=== PATIENT | female | born 1995 | race Hispanic/Latino ===

== ENCOUNTER 2017-12-21 05:52 | Emergency (ER) | payer MEDICAID, OTHER ==
[2017-12-21] MEDS ORDERED: CEFTRIAXONE SODIUM 1 GM ONE (06:58)
[2017-12-21] MEDS ORDERED: AZITHROMYCIN 250 MG TABLET PO ONE (06:59)
[2017-12-21] MEDS ORDERED: LIDOCAINE HCL 2% 20ML ONE (06:59)
== END 2017-12-21 07:18 | disposition home or self-care (01) ==
LOC: EDH 05:52
DX: O99.513 Diseases of the respiratory system complicating pregnancy, third trimester (principal); J18.9 Pneumonia, unspecified organism; Z3A.33 33 weeks gestation of pregnancy
CPT/HCPCS: 96372; 99283; J0696; J3490

== ENCOUNTER 2018-01-04 16:06 | Observation (INO) | payer MEDICAID ==
[~2018-01-04] VITALS: Ht 170.2 cm; Wt 84.4 kg
[2018-01-04 16:42] LABS: APPEARANCE,URINE Clear (CLEAR); BILIRUBIN,URINE Negative (NEGATIVE); COLOR,URINE Yellow (YELLOW); GLUCOSE, URINE (UA) 250 mg/dL (NEGATIVE); KETONES,URINE Negative (NEGATIVE); LEUKOCYTE ESTERASE ,URINE Moderate (NEGATIVE); NITRATE,URINE Negative (NEGATIVE); OCCULT BLOOD,URINE Negative (NEGATIVE); PH,URINE 6.5 (5.0-8.0); PROTEIN,URINE Negative (NEGATIVE)
[2018-01-04 16:50] LABS: BACTERIA,URINE None Seen /HPF (None Seen); MUCUS,URINE Few LPF (None Seen); RBC,URINE None Seen /HPF (0-1); RENAL EPITHELIAL CELLS,URINE Rare /HPF (None Seen); TRANSITIONAL EPI CELLS,URINE Rare /HPF (None Seen)
[2018-01-04] MEDS ORDERED: CEFTRIAXONE SODIUM 1 GM IVP SCH (17:30)
[2018-01-04] MEDS ORDERED: CEFTRIAXONE 1GM/D5W 50ML 50 ML IV SCH (17:30)
== END 2018-01-04 18:00 | disposition home or self-care (01) ==
LOC: LDH 16:06
PROVIDERS: ADMIT Obstetrics & Gynecology; ATTEND Obstetrics & Gynecology
DX: O26.893 Other specified pregnancy related conditions, third trimester (principal); R10.9 Unspecified abdominal pain; Z3A.35 35 weeks gestation of pregnancy
CPT/HCPCS: 81001; A4218; G0378 ×3; J0696 ×2; J7120; 96360; 96361

== ENCOUNTER 2018-01-29 08:59 | Inpatient (IN) | payer MEDICAID ==
[~2018-01-29] VITALS: Ht 170.2 cm; Wt 84.8 kg
[2018-01-29 20:43] LABS: APPEARANCE,URINE Cloudy (CLEAR); BILIRUBIN,URINE Negative (NEGATIVE); COLOR,URINE Yellow (YELLOW); GLUCOSE, URINE (UA) Negative (NEGATIVE); KETONES,URINE 15 mg/dL (NEGATIVE); LEUKOCYTE ESTERASE ,URINE Moderate (NEGATIVE); NITRATE,URINE Negative (NEGATIVE); OCCULT BLOOD,URINE Negative (NEGATIVE); PH,URINE 6.5 (5.0-8.0); PROTEIN,URINE Negative (NEGATIVE); UROBILINOGEN,URINE 0.2 mg/dL (0.2-1.0)
[2018-01-29 20:54] LABS: BACTERIA,URINE Few /HPF (None Seen); RBC,URINE None Seen /HPF (0-1); SQUAMOUS EPITHELIAL CELL,UR 50-100 /HPF (0-2)
[2018-01-29] MEDS: LACTATED RINGERS 1000ML 1,000 ML IV PRN (21:25)
[2018-01-29 21:42] LABS: HEMATOCRIT 29.3 % (36-48); MEAN CORPUSCULAR HGB CONC 33.2 g/dL (32.0-36.0); MEAN CORPUSCULAR VOLUME 84.4 fL (79-99); PLATELET COUNT (AUTO) 194 K/uL (130-400); RED BLOOD CELL COUNT(AUTO) 3.47 MIL/uL (4.00-5.50); RED CELL DISTRIBUTION WIDTH 15.2 % (11.0-15.5); WHITE BLOOD COUNT (AUTO) 9.4 K/uL (4.8-10.8)
[2018-01-30] MEDS: LACTATED RINGERS 1000ML 1,000 ML IV PRN (03:56)
[2018-01-30] MEDS ORDERED: OXYTOCIN 10 USP UNITS/ML ONE ×2 (04:49→13:28)
[2018-01-30] MEDS ORDERED: LACTATED RINGERS 1000ML 1,000 ML IV ONE ×2 (04:49→13:28)
[2018-01-30] MEDS ORDERED: OXYTOCIN 10 USP UNITS/ML 20 UNIT in LACTATED RINGERS 1000ML 1,000 ML IV SCH (05:00)
[2018-01-30] MEDS ORDERED: PROMETHAZINE HCL 25 MG/ML 1ML AMPULE IM ONE (11:24)
[2018-01-30] MEDS ORDERED: MEPERIDINE-PF 50 MG/ML SYG ONE (11:25)
[2018-01-30] MEDS ORDERED: WITCH HAZEL 1 PAD TP PRN (12:30)
[2018-01-30] MEDS ORDERED: MEASLES/MUMPS/RUBELLA VACCINE, LIVE 0.5 ML/VIAL SQ PRN (12:30)
[2018-01-30] MEDS ORDERED: ACETAMINOPHEN 325 MG TAB PO PRN (12:30)
[2018-01-30] MEDS ORDERED: BENZOCAINE/LANOLIN/ALOE VERA 60 ML AEROSOL TP PRN (12:30)
[2018-01-30] MEDS ORDERED: DIPH,PERTUSS(ACELL),TET VAC/PF 0.5 ML VIAL IM PRN (12:30)
[2018-01-30] MEDS ORDERED: LANOLIN 30GM OINTMENT TP PRN (12:30)
[2018-01-30] MEDS ORDERED: OXYTOCIN-LR 20 UNITS/1000 ML 1,000 ML IV SCH (12:30)
[2018-01-30 14:25] VITALS: BP 120/70
[2018-01-30] MEDS ORDERED: PREN-154 PO (14:40)
[2018-01-30] MEDS ORDERED: FERR-82 PO (14:40)
[2018-01-30] MEDS: IBUPROFEN 600 MG TABLET PO PRN ×2 (14:49→20:46)
[2018-01-30 15:45] VITALS: BP 122/62
[2018-01-30 19:58] VITALS: BP 126/71
[2018-01-30] MEDS: DOCUSATE SODIUM 100 MG CAP PO SCH (20:45)
[2018-01-30 23:36] VITALS: BP 108/60
[2018-01-31 04:12] VITALS: BP 110/55
[2018-01-31 05:11] LABS: HEMATOCRIT 26.2 % (36-48); MEAN CORPUSCULAR HEMOGLOBIN 29.3 pg (27.0-33.0); MEAN CORPUSCULAR HGB CONC 34.5 g/dL (32.0-36.0); PLATELET COUNT (AUTO) 187 K/uL (130-400); RED BLOOD CELL COUNT(AUTO) 3.08 MIL/uL (4.00-5.50); RED CELL DISTRIBUTION WIDTH 15.7 % (11.0-15.5); WHITE BLOOD COUNT (AUTO) 12.1 K/uL (4.8-10.8)
[2018-01-31 07:30] VITALS: BP 106/56
[2018-01-31 08:21] LABS: HEPATITIS Bs ANTIGEN SCREEN P Negative (Negative)
[2018-01-31] MEDS: IBUPROFEN 600 MG TABLET PO PRN (08:32)
[2018-01-31] MEDS: DOCUSATE SODIUM 100 MG CAP PO SCH (08:32)
[2018-01-31 11:35] VITALS: BP 117/71
== END 2018-01-31 13:50 | disposition home or self-care (01) | DRG 560 ==
LOC: LDH 18:36 → WSH 01-30 14:25
PROVIDERS: ADMIT Obstetrics & Gynecology; ATTEND Obstetrics & Gynecology
PROC: 10E0XZZ Delivery of Products of Conception, External Approach (ICD-10-PCS; principal; 2018-01-30)
PROC: 0W8NXZZ Division of Female Perineum, External Approach (ICD-10-PCS; 2018-01-30)
PROC: 0UQGXZZ Repair Vagina, External Approach (ICD-10-PCS; 2018-01-30)
PROC: 3E0234Z Introduction of Serum, Toxoid and Vaccine into Muscle, Percutaneous Approach (ICD-10-PCS; 2018-01-30)
PROC: 3E0134Z Introduction of Serum, Toxoid and Vaccine into Subcutaneous Tissue, Percutaneous Approach (ICD-10-PCS; 2018-01-30)
DX: O80 Encounter for full-term uncomplicated delivery (principal); Z23 Encounter for immunization; Z37.0 Single live birth; Z3A.38 38 weeks gestation of pregnancy
CPT/HCPCS: 36415; 81001; 85027; 86592; 86850; 86900; 86901; 87340; 90715; A4351; J2175; J2550; J2590; J7120

== ENCOUNTER 2020-05-28 07:56 | Inpatient (IN) | payer OTHER, MEDICAID ==
[~2020-05-28 07:56] MED LIST: FERR-82 PO; PREN-154 PO
[2020-05-28] MEDS ORDERED: LACTATED RINGERS 1000ML 1,000 ML IV PRN (08:17)
[2020-05-28 10:43] LABS: HEMATOCRIT 26.5 % (36-48); MEAN CORPUSCULAR HEMOGLOBIN 25.4 pg (27.0-33.0); MEAN CORPUSCULAR HGB CONC 30.9 g/dL (32.0-36.0); PLATELET COUNT (AUTO) 192 K/uL (130-400); RED BLOOD CELL COUNT(AUTO) 3.23 MIL/uL (4.00-5.50); RED CELL DISTRIBUTION WIDTH 14.7 % (11.0-15.5); WHITE BLOOD COUNT (AUTO) 8.3 K/uL (4.8-10.8)
[2020-05-28] MEDS ORDERED: LACTATED RINGERS 500 ML 500 ML IV PRN (10:45)
[2020-05-28] MEDS ORDERED: BUTORPHANOL TARTRATE 2 MG/ML IVP PRN (10:45)
[2020-05-28] MEDS ORDERED: NALOXONE HCL 0.4 MG/1 ML ML IV PRN (10:45)
[2020-05-28] MEDS ORDERED: OXYTOCIN 10 USP UNITS/ML 20 UNIT in LACTATED RINGERS 1000ML 1,000 ML IV SCH (10:45)
[2020-05-28] MEDS ORDERED: EPHEDRINE SULFATE 50 MG/ML AMPULE IVP PRN (10:45)
[2020-05-28] MEDS ORDERED: OXYTOCIN-LR 20 UNITS/1000 ML 1,000 ML IV ONE (10:46)
[2020-05-28] MEDS ORDERED: LIDOCAINE HCL 1% 20 ML VIAL ONE (14:35)
[2020-05-28] MEDS ORDERED: MEASLES/MUMPS/RUBELLA VACCINE, LIVE 0.5 ML/VIAL SQ PRN (15:00)
[2020-05-28] MEDS ORDERED: LANOLIN 30GM OINTMENT TP PRN (15:00)
[2020-05-28] MEDS ORDERED: ACETAMINOPHEN 325 MG TAB PO PRN (15:00)
[2020-05-28] MEDS ORDERED: OXYTOCIN-LR 20 UNITS/1000 ML 1,000 ML IV SCH (15:00)
[2020-05-28] MEDS ORDERED: ACETAMINOPHEN-CODEINE 300/30MG TAB PO PRN (15:00)
[2020-05-28] MEDS ORDERED: WITCH HAZEL 1 PAD TP PRN (15:00)
[2020-05-28] MEDS ORDERED: DIPH,PERTUSS(ACELL),TET VAC/PF 0.5 ML VIAL IM PRN (15:00)
[2020-05-28] MEDS ORDERED: BENZOCAINE/LANOLIN/ALOE VERA 60 ML AEROSOL TP PRN (15:00)
[2020-05-28 16:20] VITALS: BP 122/67
--- NOTE | 2020-05-28 16:20 | NUR ---
REPORT RECEIVED FROM CLARISSA ALLISON RN L/D AND PATIENT CARE WAS TRANSFERED AT THIS TIME. PATIENT IS STABLE AND STATES HAVING VOIDED PRIOR TO TRANSFER. PATIENT ASSESSED AND VAGINAL BLEEDING IS SMALL AND UTERUS IS FIRM AT -1 FROM UMBILICUS. PIV IS PATIENT TO LEFT FOREARM. PATIENT ORIENTED TO UNIT AND CALL LIGHT LEFT AT BEDSIDE WITHIN REACH TO CALL FOR ASSISTANCE NEEDED. SITZ BATH WAS ISSUED AND PATIENT VERBALIZED KNOWING HOW TO USE SITZ BATH; LANOLIN WAS ISSUED AND TUCKS AND SPRAY AND INSTRUCTED ON USE.
[2020-05-28] MEDS: IBUPROFEN 600 MG TABLET PO PRN (16:37)
[2020-05-28] MEDS ORDERED: PNV1TABL17 PO (17:34)
--- NOTE | 2020-05-28 17:35 | NUR ---
PATIENT REMAINS STABLE AND BABY IS OUT TO ROOM AND BONDING WELL WITH BABY.
--- NOTE | 2020-05-28 19:17 | NUR ---
BEDSIDE REPORT GIVEN TO HANH SALTER RN AND PATIENT CARE TRANSFERED AT THIS TIME.
[2020-05-28 19:40] VITALS: BP 120/57
[2020-05-28] MEDS: DOCUSATE SODIUM 100 MG CAP PO SCH (20:32)
[2020-05-29 00:07] VITALS: BP 122/65
[2020-05-29] MEDS: IBUPROFEN 600 MG TABLET PO PRN ×2 (01:14→09:12)
[2020-05-29 02:56] VITALS: BP 110/74
[2020-05-29 06:33] LABS: HEMATOCRIT 24.1 % (36-48); MEAN CORPUSCULAR HEMOGLOBIN 25.6 pg (27.0-33.0); MEAN CORPUSCULAR HGB CONC 31.1 g/dL (32.0-36.0); MEAN CORPUSCULAR VOLUME 82.3 fL (79-99); RED BLOOD CELL COUNT(AUTO) 2.93 MIL/uL (4.00-5.50); RED CELL DISTRIBUTION WIDTH 14.6 % (11.0-15.5); WHITE BLOOD COUNT (AUTO) 11.5 K/uL (4.8-10.8)
[2020-05-29 07:18] VITALS: BP 120/75
[2020-05-29] MEDS: DOCUSATE SODIUM 100 MG CAP PO SCH (09:11)
--- NOTE | 2020-05-29 10:30 | NUR ---
DR. PERKINS CALLED AND UPDATE GIVEN ON PATIENT STATUS AND INDICATED WOULD DISCHARGE PATIENT TO HOME WITH IRON AND WAS ADDED TO HER SCRIPT.
[2020-05-29 10:58] VITALS: BP 119/63
--- NOTE | 2020-05-29 11:25 | NUR ---
cm note met with patient and states resides at home with spouse, dieudonne, and 2 other manien ages 2 and 3 yo. and mother in law. pt states she does have a hx of anxiety, in the past, occurred in 2012. and took meds for anxiety, but has had no issues with anxiety since then, pt. states she has good family support that she is surrounded with for support if she needs it, but states has no feelings of anxiety at this time, and states will call her MD if any issues arise with anxiety.pt states no dc needs. updated primary nurse Cony. and nursery nurse Tanya. Addendum: 05/29/20 at 1134 by SONNY BURNS CM Amended: Links added.
--- NOTE | 2020-05-29 13:45 | NUR ---
DISCHARGE INSTRUCTIONS GIVEN AND SCRIPT FOR PAIN MANAGEMENT, COLACE AND IRON GIVEN AND INSTRUCTED ON DAILY DOSAGE AND FREQUENCY OF MEDICATION. VERBALIZED UNDERSTANDING ALL MEDS AND INSTRUCTIONS GIVEN. INFO ON IRON RICH DIET REVIEWED WITH PATIENT.
--- NOTE | 2020-05-29 15:05 | NUR ---
PATIENT WAS TAKEN VIA W/C CARRYING BABY IN ARMS TO FAMILY VEHICLE AND WAS DISCHARGED TO HER SPOUSE IN STABLE CONDITION. DENEIS PAIN AND HAS REMAINED AFEBRILE AND STABLE.
[2020-05-31 20:08] LABS: HEPATITIS Bs ANTIGEN SCREEN P Negative (Negative)
== END 2020-05-29 15:05 | disposition home or self-care (01) | DRG 807 ==
LOC: EDH 07:56 → LDH 08:04 → OBSVTOIN 08:04 → WSH 16:18
PROVIDERS: ADMIT Obstetrics & Gynecology; ATTEND Obstetrics & Gynecology
PROC: 10E0XZZ Delivery of Products of Conception, External Approach (ICD-10-PCS; principal; 2020-05-28)
PROC: 0UQMXZZ Repair Vulva, External Approach (ICD-10-PCS; 2020-05-28)
PROC: 3E0234Z Introduction of Serum, Toxoid and Vaccine into Muscle, Percutaneous Approach (ICD-10-PCS; 2020-05-28)
PROC: 3E0134Z Introduction of Serum, Toxoid and Vaccine into Subcutaneous Tissue, Percutaneous Approach (ICD-10-PCS; 2020-05-28)
DX: O99.344 Other mental disorders complicating childbirth (principal); Z37.0 Single live birth; F41.9 Anxiety disorder, unspecified; O71.82 Other specified trauma to perineum and vulva; Z3A.37 37 weeks gestation of pregnancy; Z23 Encounter for immunization; Z86.19 Personal history of other infectious and parasitic diseases
CPT/HCPCS: 36415; 85027; 86592; 86701; 86850; 86900; 86901; 87340; 87390; A4351; G0378; J0595; J2590